=== PATIENT | female | born 1990 | race Two or more races ===

== ENCOUNTER 2017-02-05 01:29 | Inpatient (IN) | payer MEDICAID ==
[2017-02-05] MEDS ORDERED: RINGERS SOLUTION,LACTATED 1,000 ML IV PRN (01:42)
[2017-02-05 01:57] LABS: APPEARANCE,URINE SLIGHTLY-CLOUDY; BILIRUBIN,URINE NEGATIVE (NEGATIVE); GLUCOSE, URINE NEGATIVE (NEGATIVE); KETONES,URINE NEGATIVE (NEGATIVE); LEUKOCYTE ESTERASE,URINE MODERATE (NEGATIVE); NITRITE,URINE NEGATIVE (NEGATIVE); PROTEIN,URINE NEGATIVE (NEGATIVE); URINE SPECIFIC GRAVITY 1.015; UROBILINOGEN,URINE NEGATIVE mg/dL (<2.0)
[2017-02-05 02:01] LABS: ABSOLUTE BASOPHILS # (AUTO) 0.1 10^3/uL (0.0-0.2); ABSOLUTE EOSINOPHILS # (AUTO) 0.2 10^3/uL (0.0-0.6); ABSOLUTE LYMPHOCYTES (AUTO) 3.3 10^3/uL (0.5-4.7); ABSOLUTE MONOCYTES (AUTO) 0.8 10^3/uL (0.1-1.4); ABSOLUTE NEUT (AUTO) 10.1 10^3/uL (1.7-8.2); BASOPHILS % (AUTO) 0.5 % (0-2); EOSINOPHILS % (AUTO) 1.2 % (0-6); HEMATOCRIT 33.7 % (36.0-47.0); HEMOGLOBIN 11.3 g/dL (12.0-15.5); HGB HCT DIFFERENCE 0.2; LYMPHOCYTES % (AUTO) 22.6 % (13-45); MEAN CORPUSCULAR HEMOGLOBIN 27.5 pg (27.0-33.4); MEAN CORPUSCULAR HGB CONC 33.7 g/dL (32.0-36.0); MEAN CORPUSCULAR VOLUME 82 fl (80-97); MONOCYTES % (AUTO) 5.8 % (3-13); RED BLOOD COUNT 4.13 10^6/uL (3.72-5.28); RED CELL DISTRIBUTION WIDTH 14.5 % (11.5-14.0); SEGMENTED NEUTROPHILS % (AUTO) 69.9 % (42-78); WHITE BLOOD COUNT 14.4 10^3/uL (4.0-10.5)
[2017-02-05 02:16] LABS: URINE BARBITURATES SCREEN NEGATIVE; URINE METHADONE SCREEN NEGATIVE; URINE OPIATES LOW NEGATIVE; URINE PHENCYCLIDINE SCREEN NEGATIVE
[2017-02-05] MEDS ORDERED: PENICILLIN G-K 5 MILLION UNIT VIAL IV ONE (02:38)
[2017-02-05] MEDS ORDERED: PENICILLIN G-K 5 MILLION UNIT VIAL ONE ×3 (02:41→10:51)
[2017-02-05] MEDS ORDERED: MISOPROSTOL 0.1 MG TABLET ONE (02:47)
[2017-02-05] MEDS ORDERED: PENICILLIN G POTASSIUM 5,000,000 UNIT in DEXTROSE 5%-WATER 100 ML IV ONE ×2 (03:30→03:45)
[2017-02-05] MEDS ORDERED: PENICILLIN G-K 5 MILLION UNIT VIAL IV SCH ×2 (03:45→07:00)
[2017-02-05] MEDS ORDERED: MISOPROSTOL 0.1 MG TABLET PO SCH (03:45)
[2017-02-05 04:43] LABS: CHLAM PCR NOT DETECTED (NOT DETECT)
[2017-02-05] MEDS ORDERED: NALBUPHINE HCL INJ 10 MG/1 ML AMPULE INJ ONE (06:56)
[2017-02-05] MEDS ORDERED: NALBUPHINE HCL INJ 10 MG/1 ML AMPULE ONE (07:01)
[2017-02-05] MEDS ORDERED: PROMETHAZINE HCL 25 MG TABLET PO ONE (07:10)
[2017-02-05] MEDS ORDERED: PROMETHAZINE HCL INJ 25 MG/1 ML VIAL ONE (07:11)
[2017-02-05] MEDS ORDERED: OXYTOCIN/NORMAL SALINE 0 UNIT/0 ML RTUINJ ONE (07:40)
[2017-02-05] MEDS ORDERED: OXYTOCIN/NORMAL SALINE 20 UNIT/1,000 ML RTUINJ IV PRN (07:52)
[2017-02-05] MEDS: PENICILLIN G POTASSIUM 2,500,000 UNIT in DEXTROSE 5%-WATER 50 ML IV SCH ×2 (10:47→10:58)
[2017-02-05] MEDS ORDERED: MISOPROSTOL 0.2 MG TABLET ONE (12:08)
[2017-02-05] MEDS ORDERED: LIDOCAINE 1% INJ-PF (10 MG/ML) 30 ML SDV ONE (12:08)
[2017-02-05] MEDS ORDERED: OXYTOCIN/NORMAL SALINE 20 UNIT/1,000 ML RTUINJ ONE (12:09)
[2017-02-05] MEDS ORDERED: BENZOCAINE/MENTHOL AEROSOL SPRAY 56 ML TOP PRN (14:18)
[2017-02-05] MEDS ORDERED: ACETAMINOPHEN WITH CODEINE #3 TABLET PO PRN ×2 (14:18)
[2017-02-05] MEDS ORDERED: ZOLPIDEM TARTRATE 5 MG TABLET PO PRN (14:18)
[2017-02-05] MEDS ORDERED: DIBUCAINE 1% OINTMENT 28 GM TP PRN (14:18)
[2017-02-05] MEDS ORDERED: DIPH/PERTUSS(ACELL)/TETANUS VAC/PF 0.5 ML SYR (>=10YO) IM PRN (14:18)
[2017-02-05] MEDS ORDERED: MEASLES,MUMPS&RUBELLA VACC/PF 0.5 ML VIAL SUBCUT PRN (14:18)
--- NOTE | 2017-02-05 14:24 | Delivery Summary ---
Del Sum A-C Datetime Report Generated by CPN: 02/05/2017 14:23 DELIVERY PERSONNEL DELIVERY PERSONNEL: [id number] Delivery Doctor:: Santos Olsen, DO Labor and Delivery Nurse:: Krista Padron RNmaster rigger Nurse:: Nallely Leggett RN Nursery Nurse:: Jennifer Corado RN MATERNAL INFORMATION Delivery Anesthesia: None Medications After Delivery: Pitocin Bolus-Please Comment Meds After Delivery Comment: Pitocin 20 units in 1000mL NS Estimated Blood Loss (ml): 300 Maternal Complications: None Provider Comments: of viable female infant STEPHANIE position Placenta delievered spontaneous and intact with 3v cord Fundus firm LABOR SUMMARY EDC: 02/18/2017 00:00 No. Babies in Womb: 1 Attempted: No Labor Anesthesia: None LABOR INFORMATION Reason for Induction: Premature Rupture of Membranes Onset of Labor: 02/05/2017 07:05 Complete Dilatation: 02/05/2017 12:10 Cervical Ripening Agents: Cytotec @ Oxytocin: Induction Group B Beta Strep: positive Antibiotics # of Doses: 3 Antibiotics Time of Last Dose: 1100 Name of Antibiotic Given: Penicillin Steroids Given: None Reason Steroids Not Administered: Not Applicable MEMBRANES Membranes Rupture Method: Spontaneous Rupture of Membranes: 02/05/2017 01:49 Length of Rupture (hr): 10.45 Amniotic Fluid Color: Clear Amniotic Fluid Amount: Small Amniotic Fluid Odor: Normal STAGES OF LABOR Stage 1 hr: 5 Stage 1 min: 5 Stage 2 hr: 0 Stage 2 min: 6 Stage 3 hr: 0 Stage 3 min: 1 Total Time in Labor hr: 5 Total Time in Labor min: 12 VAGINAL DELIVERY Episiotomy: None Laceration #1: Vaginal Laceration Extension #1: Second Degree Laceration Repair: Yes Laceration Repair Note: b/l vaginal sidewall repaired with 2-0 and 3-0 chromic in usual fashion with good hemostasis Sponge Count Correct: N/A Sharps Count Correct: N/A CSECTION DELIVERY Primary Indication: N/A Secondary Indication: N/A BABY A INFORMATION Infant Delivery Date/Time: 02/05/2017 12:16 Method of Delivery: Vaginal Born in Route : No : N/A Forceps: N/A Vacuum Extraction: N/A Shoulder Dystocia : No PRESENTATION/POSITION BABY A Presentation: Cephalic Cephalic Presentation: Vertex Vertex Position: Left Occipital Anterior Breech Presentation: N/A PLACENTA INFORMATION BABY A Placenta Delivery Time : 02/05/2017 12:17 Placenta Method of Delivery: Spontaneous Placenta Status: Delivered SCORES BABY A Heart Rate 1 min: >100 bpm Resp Effort 1 min: Good Cry Reflex Irritability 1 min: Cough or Sneeze or Pulls Away Muscle Tone 1 min: Active Motion Color 1 min: Blue/Pale Resuscitation Effort 1 min: Tactile Stimulation SCORE 1 MIN: 8 Heart Rate 5 min: >100 bpm Resp Effort 5 min: Good Cry Reflex Irritability 5 min: Cough or Sneeze or Pulls Away Muscle Tone 5 min: Active Motion Color 5 min: Body [place], Extremities Blue Resuscitation Effort 5 min: Tactile Stimulation SCORE 5 MIN: 9 INFORMATION BABY A Gestational Age at Delivery: 38.1 Gestational Status: Early Term- 37- 38.6 Weeks Outcome : Liveborn Condition : Stable Sex: Female IDENTIFICATION BABY A Infant Verification Date/Time: 02/05/2017 12:33 ID Band Number: [id number] Mother's Name Verified: Yes Infant RN Verifying Infant: RJames Padron, RN Additional Verifying Personnel: TJames Lopes, ST WEIGHT/LENGTH BABY A Birthweight (gm): 3185 Weight (lb): 7 Infant Weight (oz): 0 Infant Length (in): 19.00 Infant Length (cm): 48.26 CORD INFORMATION BABY A No. Cord Vessels: 3 Nuchal Cord : N/A Cord Blood Taken: Yes-For Eval (Mom's Blood Type - or O+) Suction: Mouth ASSESSMENT BABY A Infant Complications: None Physical Findings at Delivery: Within Normal Limits Infant Respirations: Appears Normal Skin to Skin: Yes Condominium Property Manager/ALS Called : No Infant Care By: Loreta Corado, RN Transferred To: Remains with Mother BABY B INFORMATION : N/A SIGNATURES Signature: with User ID: [email or web address]
--- NOTE | 2017-02-05 14:43 | Admission Physical ---
Datetime Report Generated by CPN: 02/05/2017 14:42 CURRENT ADMISSION Hx Assessment: The History has been Reviewed and is Current Chief Complaint: Suspected Ruptured Membranes Indication for Induction: PROM Indication for Induction: Ruptured Membranes Admit Plan: Admit to Unit ALLERGIES Medication Allergies: No Medication Allergies: No Known Allergies (02/05/2017) Medication Allergies: No Known Allergies (04/20/2012) Latex: Latex Allergies Food Allergies: N/A Environmental Allergies: N/A OBSTETRICAL HISTORY EDC: 02/18/2017 00:00 : 1 Para: 0 Term: 0 : 0 SAB: 0 IAB: 0 Ectopic: 0 Livin Cesareans: 0 VBACs: 0 Multiple Births: 0 Gestational Diabetes: No Rh Sensitization: No Incompetent Cervix: No VALERY: No Infertility: No ART Treatment: No Uterine Anomaly: No IUGR: No Hx Previous C/S: No Macrosomia: No Hx Loss/Stillborn: No PIH: No Hx : No Placenta Previa/Abruption: No Depression/PP Depression: No PTL/PROM: No Post Hemorrhage: No Current Procedures: Ultrasound Obstetrical History Comments: G1- current SEE RECORDS Alcohol: No Marijuana : No Cocaine: No Other Illicit Drugs: No Cigarettes: Never Smoker. [id number] MEDICAL HISTORY Diabetes: No Blood Transfusion: No Pulmonary Disease (Asthma, TB): No Breast Disease: No Hypertension: No Legal Services Manager Surgery: No Heart Disease: No Hosp/Surgery: No Autoimmune Disorder: No Anesthetic Complications: No Kidney Disease: No Abnormal Pap Smear: No Neuro/Epilepsy: No Psychiatric Disorders: No Other Medical Diseases: No Hepatitis/Liver Disease: No Significant Family History: No Varicosities/Phlebitis: No Trauma/Violence : No Thyroid Dysfunction: No Medical History Comments: morbid obesity INFECTIOUS HISTORY Gonorrhea: No Genital Herpes: No Chlamydia: Yes Tuberculosis: No Syphilis: No Hepatitis: No HIV/AIDS Exposure: No Rash or Viral Illness: No HPV: No Infectious History Comments: 07/2016 chlamydia + PETER in August01.25.2017 chlam + took abx PHYSICAL EXAM General: Normal HEENT: Normal Neurologic: Normal Heart: Normal Lungs: Normal Abdomen: Normal Genitourinary Exam: Normal Extremities: Normal Pelvic Type: Not Done Physical Exam Comments: Gen: morbid obesity Abd: gravid, NT; obese Vital Signs: Reviewed; Within Normal Limits FETUS A EGA: 38.1 Monitoring: External US FHR- Baseline: 140s Variability: Moderate 6-25bpm Accelerations: 15X15 FHR Category: Category I FHR Comments: Reasurring status Estimated Weight (gm): Approx. 3200g Presentation: Vertex Admit Comment: 26yo G1 @ 38w1d with complaints of leakage of fluid. Pt reports good fm, no vb. Pt underwent ROM just prior to arrival. Fluid was noted to be clear. Pt denies any problems with this other than noted morbid obesity. PLANS FOR LABOR AND DELIVERY Labor and Delivery: None Pain Management: None Feeding Preference: Formula Benefit of Breast Feed Discussed: Yes Circumcision: N/A INFORMED CONSENT Signature: with User ID: [email or web address]
[2017-02-05] MEDS: DOCUSATE SODIUM 100 MG CAPSULE PO SCH (17:09)
[2017-02-05] MEDS: FERROUS SULFATE 325 MG TABLET PO SCH (17:10)
[2017-02-05] MEDS: IBUPROFEN 800 MG TABLET PO SCH (21:10)
[2017-02-06] MEDS: IBUPROFEN 800 MG TABLET PO SCH ×3 (06:13→21:28)
[2017-02-06 08:07] LABS: HEMATOCRIT 29.9 % (36.0-47.0); HGB HCT DIFFERENCE 0.1; MEAN CORPUSCULAR HEMOGLOBIN 27.8 pg (27.0-33.4); MEAN CORPUSCULAR HGB CONC 33.4 g/dL (32.0-36.0); MEAN CORPUSCULAR VOLUME 83 fl (80-97); RED CELL DISTRIBUTION WIDTH 14.9 % (11.5-14.0); WHITE BLOOD COUNT 13.6 10^3/uL (4.0-10.5)
--- NOTE | 2017-02-06 09:26 | PDOC PROGRESS REPORT ---
Subjective-OB Subjective: Post Delivery Day: 26 year old. Denies any needs at this time. reports normal bleeding, tolerating diet, voiding without difficulty, passing gas, bottle feeding. fundus firm at U-1. Physical Exam (OB) Vital Signs: Temp Pulse Resp BP Pulse Ox 98.2 F 72 18 109/61 100 02/06/17 07:29 02/06/17 07:29 02/06/17 07:29 02/06/17 07:29 02/06/17 07:29 Intake & Output 02/05/17 02/06/17 02/07/17 06:59 06:59 06:59 Intake Total 700 Balance 700 Weight 137.95 kg - Abdomen Description: Soft, Round Hernia Present: No Fundal Description: Firm, Midline Fundal Height: u/u - u/2 - Extremities Lower extremities: Josef's sign - neg Calf: Normal - Neurological Cognition: Normal Orientation: AAOx4 Speech: Normal Objective-Diagnostic Laboratory: 02/06/17 07:08 02/06/17 07:08 WBC 13.6 H RBC 3.60 L Hgb 10.0 L Hct 29.9 L MCV 83 MCH 27.8 MCHC 33.4 RDW 14.9 H Plt Count 188 Assessment and Plan(PN) - Time Spent with Patient Time with patient: Less than 15 minutes - Disposition Anticipated Discharge: Home Within: within 24 hours
[2017-02-06] MEDS ORDERED: PRENATAL VITAMIN W-O CA NO5/FE FUMARATE/FA CAPSULE PO SCH (10:00)
[2017-02-06] MEDS: FERROUS SULFATE 325 MG TABLET PO SCH ×2 (10:17→18:10)
[2017-02-06] MEDS: DOCUSATE SODIUM 100 MG CAPSULE PO SCH ×2 (10:18→18:12)
[2017-02-06] MEDS: SENNOSIDES/DOCUSATE 8.6-50 MG 1 EACH TABLET PO SCH (10:18)
[2017-02-07] MEDS: IBUPROFEN 800 MG TABLET PO SCH ×2 (05:59→14:04)
[2017-02-07 08:58] VITALS: BP 112/62
[2017-02-07] MEDS ORDERED: PRENATAL VITAMIN W DHA CAPSULE PO ONE (09:23)
--- NOTE | 2017-02-07 09:25 | PDOC DISCHARGE SUMMARY ---
Final Diagnosis Discharge Date: 02/07/17 - Final Diagnosis (1) Acute blood loss anemia Is this a current diagnosis for this admission?: Yes (2) Normal vaginal delivery Is this a current diagnosis for this admission?: Yes (3) Obesity Is this a current diagnosis for this admission?: Yes Discharge Data - Discharge Medication Home Medications: Docusate Sodium [Colace 100 mg Capsule] 100 mg PO BID #60 capsule 02/07/17 Ferrous Sulfate [Feosol 325 mg Tablet] 325 mg PO BID #60 tablet 02/07/17 Ibuprofen [Motrin 800 mg Tablet] 800 mg PO Q8 #60 tablet 02/07/17 Gestational Age: 38.1 Reason(s) for Admission: Induction of Labor, PROM Procedures: NST Intrapartum Procedure(s): Spontaneous Vaginal Delivery Complication(s): Laceration-Vaginal Laceration-Degree: 1st - Data Baby 1 Female at 1 minute: 8 at 5 minutes: 9 Weight: 3185 kg Home with Mother: Yes Complications: No - Diagnosis Test Laboratory: Temp Pulse Resp BP Pulse Ox 97.6 F 85 16 112/62 100 02/07/17 07:43 02/07/17 07:43 02/07/17 07:43 02/07/17 07:43 02/07/17 07:43 02/05/17 02/05/17 02/06/17 01:38 01:50 07:08 RBC 4.13 3.60 L Hgb 11.3 L 10.0 L Hct 33.7 L 29.9 L Urine Opiates Screen NEGATIVE - Discharge information/Instructions Discharge Activity: Activity As Tolerated, Pelvic Rest, No tub bath Discharge Diet: Regular Disposition: HOME, SELF-CARE Follow up with: [facility] in: 4, Weeks
[2017-02-07] MEDS: SENNOSIDES/DOCUSATE 8.6-50 MG 1 EACH TABLET PO SCH (09:35)
[2017-02-07] MEDS: FERROUS SULFATE 325 MG TABLET PO SCH (09:35)
[2017-02-07] MEDS: DOCUSATE SODIUM 100 MG CAPSULE PO SCH (09:35)
[2017-02-07] MEDS ORDERED: PRENATAL VITAMIN W DHA CAPSULE PO SCH (10:00)
== END 2017-02-07 16:35 | disposition home or self-care (01) | DRG 774 ==
LOC: LC 01:29 → LR 01:46 → 2S 14:35
PROVIDERS: ADMIT Obstetrics & Gynecology; ATTEND Obstetrics & Gynecology
PROC: 10E0XZZ Delivery of Products of Conception, External Approach (ICD-10-PCS; principal; 2017-02-05)
PROC: 0KQM0ZZ Repair Perineum Muscle, Open Approach (ICD-10-PCS; 2017-02-05)
DX: O99.214 Obesity complicating childbirth (principal); O98.32 Other infections with a predominantly sexual mode of transmission complicating childbirth; Z68.43 Body mass index [BMI] 50.0-59.9, adult; D62 Acute posthemorrhagic anemia; O99.824 Streptococcus B carrier state complicating childbirth; O70.1 Second degree perineal laceration during delivery; O90.81 Anemia of the puerperium; E66.01 Morbid (severe) obesity due to excess calories; Z3A.38 38 weeks gestation of pregnancy; Z37.0 Single live birth
CPT/HCPCS: 36415; 80307; 81005; 85025; 85027; 86592; 86850; 86900; 86901; 87491; 87591; 90707; J2300; J2540; J2550; J2590; J3490

== ENCOUNTER 2019-12-18 01:57 | Outpatient (CLI) | payer MEDICAID ==
[2019-12-18 02:34] LABS: APPEARANCE,URINE CLEAR; BILIRUBIN,URINE NEGATIVE (NEGATIVE); COLOR,URINE STRAW; GLUCOSE, URINE NEGATIVE (NEGATIVE); KETONES,URINE NEGATIVE (NEGATIVE); LEUKOCYTE ESTERASE,URINE TRACE (NEGATIVE); NITRITE,URINE NEGATIVE (NEGATIVE); PROTEIN,URINE NEGATIVE (NEGATIVE); URINE SPECIFIC GRAVITY 1.008; UROBILINOGEN,URINE NEGATIVE mg/dL (<2.0)
[2019-12-18 03:00] LABS: URINE AMPHETAMINES SCREEN NEGATIVE; URINE BARBITURATES SCREEN NEGATIVE; URINE BENZODIAZEPINES SCREEN NEGATIVE; URINE COCAINE SCREEN NEGATIVE; URINE MARIJUANA (THC) SCREEN NEGATIVE; URINE METHADONE SCREEN NEGATIVE; URINE PHENCYCLIDINE SCREEN NEGATIVE
--- NOTE | 2019-12-18 03:10 | Non Stress Test Report ---
Non Stress Test Datetime Report Generated by CPN: 12/18/2019 03:10 DEMOGRAPHIC EGA NST: 39.1 INDICATION Indication for Study (NST) Other: labor check VITAL SIGNS Temperature - NST: 98.7 RESP - NST: 17 MONITORING Monitor Explained: Monitor Explained; Test Explained; Patient Verbalized Understanding Time on Monitor: 12/18/2019 02:10 Time off Monitor: 12/18/2019 03:09 NST Duration: 59 NST INTERVENTIONS NST Interventions: Reposition Patient Physician Notified NST: Dr Ilan BABY A: [id number] BABY A Movement : Present Contraction Frequency : 5-8 FHR Baseline : 155 Accelerations : 15X15 Decelerations : None Variability : Moderate 6-25bpm NST Review: Meets Criteria for Reactive NST NST Review and Verified By : Jossie Padron RN NST Results: Reactive NST REPORT Report Trigger: Send Report
== END 2019-12-18 03:13 | disposition home or self-care (01) ==
LOC: LC 01:57
PROVIDERS: ATTEND Obstetrics & Gynecology
DX: O47.1 False labor at or after 37 completed weeks of gestation (principal); Z3A.39 39 weeks gestation of pregnancy
CPT/HCPCS: 59025; 80307; 81005

== ENCOUNTER 2019-12-19 15:44 | Outpatient (CLI) | payer MEDICAID ==
[2019-12-19 16:34] LABS: APPEARANCE,URINE SLIGHTLY-CLOUDY; BILIRUBIN,URINE NEGATIVE (NEGATIVE); COLOR,URINE YELLOW; GLUCOSE, URINE NEGATIVE (NEGATIVE); KETONES,URINE NEGATIVE (NEGATIVE); LEUKOCYTE ESTERASE,URINE MODERATE (NEGATIVE); NITRITE,URINE NEGATIVE (NEGATIVE); PROTEIN,URINE NEGATIVE (NEGATIVE); URINE SPECIFIC GRAVITY 1.019; UROBILINOGEN,URINE NEGATIVE mg/dL (<2.0)
--- NOTE | 2019-12-19 16:45 | Non Stress Test Report ---
Non Stress Test Datetime Report Generated by CPN: 12/19/2019 16:45 DEMOGRAPHIC Test Number: 2 EGA NST: 39.2 VITAL SIGNS Temperature - NST: 98.5 Pulse - NST: 99 RESP - NST: 15 NBPSYS NST: 119 NBPDIA NST: 60 MONITORING Monitor Explained: Monitor Explained; Test Explained; Patient Verbalized Understanding Time on Monitor: 12/19/2019 16:01 Time off Monitor: 12/19/2019 16:44 NST Duration: 43 NST INTERVENTIONS NST Interventions: Reposition Patient BABY A: [id number] BABY A Movement : Present Contraction Frequency : x1 FHR Baseline : 150 Accelerations : 15X15 Decelerations : None Variability : Moderate 6-25bpm NST Review: Meets Criteria for Reactive NST NST Review and Verified By : SAutry NST Results: Reactive NST REPORT Report Trigger: Send Report
[2019-12-19 16:57] LABS: URINE AMPHETAMINES SCREEN NEGATIVE; URINE BARBITURATES SCREEN NEGATIVE; URINE BENZODIAZEPINES SCREEN NEGATIVE; URINE COCAINE SCREEN NEGATIVE; URINE MARIJUANA (THC) SCREEN NEGATIVE; URINE METHADONE SCREEN NEGATIVE; URINE PHENCYCLIDINE SCREEN NEGATIVE
== END 2019-12-19 17:04 | disposition home or self-care (01) ==
LOC: LC 15:44
PROVIDERS: ATTEND Obstetrics & Gynecology
DX: O47.1 False labor at or after 37 completed weeks of gestation (principal); Z3A.39 39 weeks gestation of pregnancy
CPT/HCPCS: 59025; 80307; 81005; 84112

== ENCOUNTER 2019-12-22 03:46 | Inpatient (IN) | payer MEDICAID ==
[2019-12-22 04:32] LABS: APPEARANCE,URINE CLEAR; BILIRUBIN,URINE NEGATIVE (NEGATIVE); COLOR,URINE STRAW; GLUCOSE, URINE NEGATIVE (NEGATIVE); KETONES,URINE NEGATIVE (NEGATIVE); LEUKOCYTE ESTERASE,URINE NEGATIVE (NEGATIVE); NITRITE,URINE NEGATIVE (NEGATIVE); PROTEIN,URINE NEGATIVE (NEGATIVE); URINE SPECIFIC GRAVITY 1.005; UROBILINOGEN,URINE NEGATIVE mg/dL (<2.0)
[2019-12-22] MEDS ORDERED: RINGERS SOLUTION,LACTATED 1,000 ML IV PRN (04:34)
[2019-12-22] MEDS ORDERED: OXYTOCIN/0.9 % SODIUM CHLORIDE 30 UNIT/500 ML RTUINJ IV PRN ×2 (04:35→08:04)
[2019-12-22] MEDS ORDERED: LIDOCAINE 1% INJ-PF (10 MG/ML) 30 ML SDV ONE (04:42)
[2019-12-22] MEDS ORDERED: MISOPROSTOL 0.2 MG TABLET ONE (04:42)
[2019-12-22] MEDS ORDERED: OXYTOCIN/0.9 % SODIUM CHLORIDE 0 UNIT/0 ML RTUINJ ONE (04:42)
[2019-12-22 04:58] LABS: URINE AMPHETAMINES SCREEN NEGATIVE; URINE BARBITURATES SCREEN NEGATIVE; URINE BENZODIAZEPINES SCREEN NEGATIVE; URINE COCAINE SCREEN NEGATIVE; URINE MARIJUANA (THC) SCREEN NEGATIVE; URINE METHADONE SCREEN NEGATIVE; URINE PHENCYCLIDINE SCREEN NEGATIVE
[2019-12-22] MEDS ORDERED: OXYTOCIN/0.9 % SODIUM CHLORIDE 30 UNIT/500 ML RTUINJ ONE (05:06)
[2019-12-22 05:22] LABS: ABSOLUTE BASOPHILS # (AUTO) 0.1 10^3/uL (0.0-0.2); ABSOLUTE EOSINOPHILS # (AUTO) 0.2 10^3/uL (0.0-0.6); ABSOLUTE MONOCYTES (AUTO) 0.7 10^3/uL (0.1-1.4); ABSOLUTE NEUT (AUTO) 8.2 10^3/uL (1.7-8.2); BASOPHILS % (AUTO) 0.5 % (0-2); EOSINOPHILS % (AUTO) 1.9 % (0-6); HEMATOCRIT 33.4 % (36.0-47.0); HEMOGLOBIN 11.1 g/dL (12.0-15.5); LYMPHOCYTES % (AUTO) 24.2 % (13-45); MEAN CORPUSCULAR HEMOGLOBIN 27.4 pg (27.0-33.4); MEAN CORPUSCULAR HGB CONC 33.3 g/dL (32.0-36.0); MEAN CORPUSCULAR VOLUME 82 fl (80-97); PLATELET COUNT 222 10^3/uL (150-450); RED BLOOD COUNT 4.07 10^6/uL (3.72-5.28); RED CELL DISTRIBUTION WIDTH 15.4 % (11.5-14.0); SEGMENTED NEUTROPHILS % (AUTO) 67.4 % (42-78); TOTAL CELLS COUNTED % (AUTO) 100 %; WHITE BLOOD COUNT 12.2 10^3/uL (4.0-10.5)
--- NOTE | 2019-12-22 06:48 | Admission Physical ---
Datetime Report Generated by CPN: 12/22/2019 06:47 CURRENT ADMISSION Chief Complaint: Suspected Ruptured Membranes Indication for Induction: PROM Admit Impression : Term, Intrauterine ; No Active Labor; Ruptured Membranes Admit Plan: Admit to Unit; Initiate Labor Induction Protocol ALLERGIES Medication Allergies: No Medication Allergies: No Known Allergies (12/22/2019) Latex: No Latex Allergies Food Allergies: no Environmental Allergies: no OBSTETRICAL HISTORY EDC: 12/24/2019 00:00 : 2 Para: 1 Term: 1 : 0 SAB: 0 IAB: 0 Livin Cesareans: 0 VBACs: 0 Gestational Diabetes: No Rh Sensitization: No Incompetent Cervix: No VALERY: No Infertility: No ART Treatment: No Uterine Anomaly: No IUGR: No Hx Previous C/S: No Macrosomia: No Hx Loss/Stillborn: No PIH: No Hx : No Placenta Previa/Abruption: No Depression/PP Depression: No PTL/PROM: No Post Hemorrhage: No Current Procedures: Ultrasound; NST Obstetrical History Comments: g1-2016, , 38 weeks, female, 7lb, no complications g2-current , elevated BMI, LPNC SEE RECORDS Alcohol: No Marijuana : No Cocaine: No Other Illicit Drugs: No Cigarettes: Never Smoker. [id number] MEDICAL HISTORY Diabetes: No Blood Transfusion: No Pulmonary Disease (Asthma, TB): No Breast Disease: No Hypertension: No Screen Examiner Surgery: No Heart Disease: No Hosp/Surgery: Yes Autoimmune Disorder: No Anesthetic Complications: No Kidney Disease: No Abnormal Pap Smear: No Neuro/Epilepsy: No Psychiatric Disorders: No Other Medical Diseases: No Hepatitis/Liver Disease: No Significant Family History: No Varicosities/Phlebitis: No Trauma/Violence : No Thyroid Dysfunction: No Medical History Comments: childbirth x 1, morbidly obese INFECTIOUS HISTORY Gonorrhea: No Genital Herpes: No Chlamydia: Yes Tuberculosis: No Syphilis: No Hepatitis: No HIV/AIDS Exposure: No Rash or Viral Illness: No HPV: No Infectious History Comments: chlamydia x 3 last test to cure 11/2019 PHYSICAL EXAM General: Normal HEENT: Normal Neurologic: Normal Thyroid: Normal Heart: Normal Lungs: Normal Breast: Normal Back: Normal Abdomen: Normal Genitourinary Exam: Normal Extremities: Normal DTRs: Normal Pelvic Type: Adequate Vital Signs: Reviewed; Within Normal Limits VAGINAL EXAM Dilatation: 2 Effacement: 70 Station: -3 FETUS A EGA: 39.5 Monitoring: External US FHR- Baseline: 150 Variability: Moderate 6-25bpm Accelerations: 15X15 Decelerations: None FHR Category: Category I Estimated Weight (gm): 3800 Presentation: Vertex PLANS FOR LABOR AND DELIVERY Labor and Delivery: None Pain Management: Medications; Epidural Feeding Preference: Both Benefit of Breast Feed Discussed: Yes Circumcision: No INFORMED CONSENT Signature: with User ID: [email or web address]
[2019-12-22] MEDS ORDERED: ZOLPIDEM TARTRATE 5 MG TABLET PO PRN (08:04)
[2019-12-22] MEDS ORDERED: DIBUCAINE 1% OINTMENT 28 GM TP PRN (08:04)
[2019-12-22] MEDS ORDERED: ACETAMINOPHEN 325 MG TABLET PO PRN (08:04)
[2019-12-22] MEDS ORDERED: MEASLES,MUMPS&RUBELLA VACC/PF 0.5 ML VIAL SUBCUT PRN (08:04)
[2019-12-22] MEDS ORDERED: DIPH/PERTUSS(ACELL)/TETANUS VAC/PF 0.5 ML SYR (>=10YO) IM PRN (08:04)
[2019-12-22] MEDS ORDERED: PROMETHAZINE HCL INJ 25 MG/1 ML VIAL IV PRN (08:04)
[2019-12-22] MEDS ORDERED: GLYCERIN/WITCH HAZEL LEAF 1 EACH MED..WIPE TP PRN (08:04)
[2019-12-22] MEDS ORDERED: ACETAMINOPHEN WITH CODEINE #3 TABLET PO PRN ×2 (08:04)
[2019-12-22] MEDS ORDERED: MAGNESIUM HYDROXIDE SUSP 30 ML UDCUP PO PRN (08:04)
[2019-12-22] MEDS ORDERED: PROMETHAZINE HCL 25 MG SUPP.RECT PR PRN (08:04)
[2019-12-22] MEDS ORDERED: PSEUDOEPHEDRINE HCL 30 MG TABLET PO PRN (08:04)
[2019-12-22] MEDS ORDERED: PROMETHAZINE HCL 25 MG TABLET PO PRN (08:04)
[2019-12-22] MEDS ORDERED: NA PHOS,M-B/NA PHOS,DI-BA (ADULT) 133 ML ENEMA PR PRN (08:04)
[2019-12-22] MEDS ORDERED: DIPHENHYDRAMINE HCL 25 MG CAPSULE PO PRN (08:04)
[2019-12-22] MEDS ORDERED: ACETAMINOPHEN 650 MG SUPP.RECT PR PRN (08:04)
[2019-12-22] MEDS ORDERED: BENZOCAINE/MENTHOL AEROSOL SPRAY 56 ML TOP PRN (08:04)
--- NOTE | 2019-12-22 10:14 | Birth Certificate Data ---
Cert Data Datetime Report Generated by CPN: 12/22/2019 10:13 CERTIFICATE DATA 47a. Care: No (12/18/2019 02:07:Tiera Sotelo RN) 47b. Date of First Visit: 09/04/2019 00:00 (12/18/2019 02:07:Tiera Sotelo RN) 47c. Date of Last Visit: 12/18/2019 00:00 (12/18/2019 02:07:Tiera Sotelo RN) 47d. Number of Visits: 11 (12/18/2019 02:07:Tiera Sotelo RN) 48a. Number of Prev Live Births: 1 (12/18/2019 02:07:Tiera Sotelo RN) 48b. Now Livin (12/18/2019 02:07:ANIRUDH Pollard) 48c. Live Births Now : 0 (12/18/2019 02:07:QS system process) 48e. Losses: 0 (12/18/2019 02:07:Jennifer Corado RN) RISK FACTORS IN THIS 49a. Diabetes: No (12/18/2019 02:07:Tiera Sotelo RN) 49b. Hypertension: No (12/18/2019 02:07:Tiera Sotelo RN) 49c. Previous Births: 0 (12/18/2019 02:07:ANIRUDH Pollard) 49d. Stillborns: No (12/18/2019 02:07:Tiera Sotelo RN) 49d. IUGR: No (12/18/2019 02:07:Tiera Sotelo RN) 49e. Infertility Treatment: No (12/18/2019 02:07:Tiera Sotelo RN) 49f. Previous Cesareans: 0 (12/18/2019 02:07:Tiera Sotelo RN) Mother's Height 50b. Height Inches: 64 (12/22/2019 09:54:QS system process) Mother's Weight 51a. Pre- Weight (lbs): 309 (12/18/2019 02:07:Nany Livingston RN) 51b. Weight at Delivery (lbs): 339 (12/22/2019 09:54:QS system process) 52. Dt Last Normal Menses Began: 07/29/2019 00:00 (12/18/2019 02:07:Jennifer Corado RN) Infections Present/Treated 53a. Gonorrhea: No (12/18/2019 02:07:Tiera Sotelo RN) Results this Hospital Visit : Negative (12/18/2019 02:07:Tiera Sotelo RN) 53b. Syphilis: No (12/18/2019 02:07:Tiera Sotelo RN) 53c. Chlamydia: Yes (12/18/2019 02:07:Palak Palacio RN) Results this Hospital Visit: Positive (12/18/2019 02:07:Tiera Sotelo RN) 53d. Hepatitis B: No (12/18/2019 02:07:Tiera Sotelo RN) Results this Hospital Visit: Negative (12/18/2019 02:07:Tiera Sotelo RN) 53e. Hepatitis C: Negative (12/18/2019 02:07:Tiera Sotelo RN) 53h. Mother Tested for HBsAG: Yes (12/18/2019 02:07:Tiera Sotelo RN) 53i. Date Tested: 09/25/2019 00:00 (12/18/2019 02:07:Tiera Sotelo RN) 53j. Test Result: Negative (12/18/2019 02:07:Tiera Sotelo RN) Obstetric Procedures 54a, b, c. Obstetric Procedures: Ultrasound; NST (12/18/2019 02:07:Tiera Sotelo RN) Cigarette Smoking Cigarette Smoking: Never Smoker. [id number] (12/18/2019 02:07:Palak Palacio RN) Onset of Labor 56a. PROM >12 Hrs: 4.30 (12/22/2019 04:02:QS system process) 56b. Precipitous Labor <3 Hrs: 4 (12/18/2019 02:07:QS system process) 56c. Prolonged Labor > 20 Hrs: 4 (12/18/2019 02:07:QS system process) 57a. Induction of Labor: Augmentation (12/18/2019 02:07:Odalys Talavera MD ([facility])) 57c. Non-Vertex Presentation A: Vertex (12/18/2019 02:07:Palak Palacio RN) 57d. Steroids - Lung Mat: None (12/18/2019 02:07:Jennifer Corado RN) 57d. Steroids - Lung Mat: Not Applicable (12/18/2019 02:07:Jennifer Corado RN) 57g. Moderate/Heavy Meconium: Light Meconium (12/22/2019 04:02:Tiera Sotelo RN) 57h. Intolerance of Labor: N/A (12/18/2019 02:07:Palak Palacio RN) : N/A (12/18/2019 02:07:Palak Palacio RN) 57i. Epidural/Spinal Anesthesia: None (12/18/2019 02:07:Palak Palacio KEVIN) Method of Delivery 58a. Forceps - Unsuccessful A: N/A (12/18/2019 02:07:Palak Palacio RN) 58b. Vacuum - Unsuccessful A: N/A (12/18/2019 02:07:Palak Palacio, KEVIN) 58c. Presentation at 58c. Presentation at - A : Vertex (12/18/2019 02:07:Palak Palacio RN) 58c. Presentation at - A : N/A (12/18/2019 02:07:Palak Palacio RN) 58c. Presentation at - A : Cephalic (12/18/2019 02:07:Palak Palacio RN) Final Route and Method of Del 58d. Baby A Route/Delivery: Vaginal (12/22/2019 07:48:Palak Palacio RN) 58e. Trial of Labor Attempted: No (12/18/2019 02:07:Palak Palacio RN) 58e. Trial of Labor Attempted A: N/A (12/18/2019 02:07:Palak Palacio RN) 58e. Trial of Labor Attempted B: N/A (12/18/2019 02:07:Palak Palacio RN) Maternal Morbidity 59b. 3rd or 4th Degree Lacs: None (12/18/2019 02:07:Odalys Talavera MD ([facility])) 59b. 3rd or 4th Degree Lacs: N/A (12/18/2019 02:07:Jennifer Corado RN) Birthweight Baby A: 3546 (12/18/2019 02:07:Mesha Eric RN) 60a. Pounds : 7 (12/18/2019 02:07:QS system process) 60b. Ounces: 13 (12/18/2019 02:07:QS system process) 61. GA at Delivery Baby A: 39.5 (12/18/2019 02:07:Palak Palacio RN) : Full Term- 39- 40.6 Weeks (12/18/2019 02:07:QS system process) 62a. 5 Minute Baby A: 9 (12/18/2019 02:07:QS system process)
--- NOTE | 2019-12-22 10:14 | Delivery Summary ---
Del Sum A-C Datetime Report Generated by CPN: 12/22/2019 10:13 DELIVERY PERSONNEL DELIVERY PERSONNEL: [id number] Delivery Doctor:: Odalys Talavera MD Labor and Delivery Nurse:: Jennifer Corado RNpublic address system operator Nurse:: Palak Palacio RN Nursery Nurse:: Mesha Eric RN Entry Level Marketing Representative/ENGINEERING RESEARCH MANAGER: Lisa Camilo, PERISHABLE FREIGHT INSPECTOR MATERNAL INFORMATION Delivery Anesthesia: None Medications After Delivery: Pitocin 30 Units in 500ml NS/D5W Estimated Blood Loss (ml): 200 Delivery QBL: 200 Maternal Complications: None LABOR SUMMARY EDC: 12/24/2019 00:00 No. Babies in Womb: 1 Attempted: No Labor Anesthesia: None LABOR INFORMATION Reason for Induction: Not Applicable Onset of Labor: 12/22/2019 03:30 Complete Dilatation: 12/22/2019 07:42 Oxytocin: Augmentation Group B Beta Strep: negative Steroids Given: None Reason Steroids Not Administered: Not Applicable MEMBRANES Membranes Rupture Method: Spontaneous Rupture of Membranes: 12/22/2019 03:30 Length of Rupture (hr): 4.30 Amniotic Fluid Color: Light Meconium Amniotic Fluid Amount: Moderate Amniotic Fluid Odor: Normal STAGES OF LABOR Stage 1 hr: 4 Stage 1 min: 12 Stage 2 hr: 0 Stage 2 min: 6 Stage 3 hr: 0 Stage 3 min: 4 Total Time in Labor hr: 4 Total Time in Labor min: 22 VAGINAL DELIVERY Episiotomy: None Laceration #1: None Laceration Extension #1: N/A Laceration Repair: Not Applicable Sponge Count Correct: Yes Sharps Count Correct: Yes CSECTION DELIVERY Primary Indication: N/A Secondary Indication: N/A CSection Incidence: N/A Labor: N/A Elective: N/A CSection Incision: N/A BABY A INFORMATION Delivery Date/Time: 12/22/2019 07:48 Method of Delivery: Vaginal Nurse Controlled Delivery: No Born in Route : No : N/A Forceps: N/A Vacuum Extraction: N/A Shoulder Dystocia : No PRESENTATION/POSITION BABY A Presentation: Cephalic Cephalic Presentation: Vertex Vertex Position: Left Occipital Anterior Breech Presentation: N/A PLACENTA INFORMATION BABY A Placenta Delivery Time : 12/22/2019 07:52 Placenta Method of Delivery: Spontaneous Placenta Status: Delivered SCORES BABY A Heart Rate 1 min: >100 bpm Resp Effort 1 min: Good Cry Reflex Irritability 1 min: Cough or Sneeze or Pulls Away Muscle Tone 1 min: Active Motion Color 1 min: Body [place], Extremities Blue Resuscitation Effort 1 min: Tactile Stimulation SCORE 1 MIN: 9 Heart Rate 5 min: >100 bpm Resp Effort 5 min: Good Cry Reflex Irritability 5 min: Cough or Sneeze or Pulls Away Muscle Tone 5 min: Active Motion Color 5 min: Body [place], Extremities Blue Resuscitation Effort 5 min: N/A SCORE 5 MIN: 9 INFANT INFORMATION BABY A Gestational Age at Delivery: 39.5 Gestational Status: Full Term- 39- 40.6 Weeks Outcome : Liveborn Infant Condition : Stable Infant Sex: Male IDENTIFICATION BABY A Infant Verification Date/Time: 12/22/2019 08:01 ID Band Number: [id number] Mother's Name Verified: Yes RN Verifying : Ajay Palacio RN, Osiel Chaudhary RN WEIGHT/LENGTH BABY A Birthweight (gm): 3546 Infant Weight (lb): 7 Weight (oz): 13 Length (in): 19.50 Infant Length (cm): 49.53 CORD INFORMATION BABY A No. Cord Vessels: 3 Nuchal Cord : Around Neck x1, Loose Nuchal Cord- Other: body cord Cord Blood Taken: Yes-For Eval (Mom's Blood Type - or O+) Infant Suction: None ASSESSMENT BABY A Infant Complications: None Physical Findings at Delivery: Within Normal Limits Infant Respirations: Appears Normal Skin to Skin: Yes It Risk Advisor/ALS Called : No Care By: Billy Eric RN Transferred To: Remains with Mother BABY B INFORMATION : N/A SIGNATURES Signature: with User ID: [email or web address]
[2019-12-22] MEDS: PRENATAL VITAMIN W DHA CAPSULE PO SCH (12:07)
[2019-12-22] MEDS: SENNOSIDES/DOCUSATE 8.6-50 MG 1 EACH TABLET PO SCH (12:08)
[2019-12-22] MEDS: DOCUSATE SODIUM 100 MG CAPSULE PO SCH ×2 (12:08→18:32)
[2019-12-22] MEDS: FAMOTIDINE 20 MG TABLET PO SCH ×2 (12:08→21:26)
[2019-12-22] MEDS: FERROUS SULFATE 325 MG TABLET PO SCH ×2 (12:08→18:32)
[2019-12-22] MEDS: IBUPROFEN 800 MG TABLET PO SCH ×2 (13:23→21:26)
[2019-12-23] MEDS: IBUPROFEN 800 MG TABLET PO SCH ×3 (05:21→21:33)
[2019-12-23 07:12] LABS: HEMATOCRIT 32.6 % (36.0-47.0); HEMOGLOBIN 11.1 g/dL (12.0-15.5); MEAN CORPUSCULAR HEMOGLOBIN 28.2 pg (27.0-33.4); MEAN CORPUSCULAR HGB CONC 34.1 g/dL (32.0-36.0); MEAN CORPUSCULAR VOLUME 83 fl (80-97); PLATELET COUNT 194 10^3/uL (150-450); RED BLOOD COUNT 3.93 10^6/uL (3.72-5.28); RED CELL DISTRIBUTION WIDTH 15.5 % (11.5-14.0); WHITE BLOOD COUNT 10.9 10^3/uL (4.0-10.5)
[2019-12-23] MEDS: FERROUS SULFATE 325 MG TABLET PO SCH ×2 (09:35→17:08)
[2019-12-23] MEDS: PRENATAL VITAMIN W DHA CAPSULE PO SCH (09:35)
[2019-12-23] MEDS: FAMOTIDINE 20 MG TABLET PO SCH ×2 (09:35→21:33)
[2019-12-23] MEDS: SENNOSIDES/DOCUSATE 8.6-50 MG 1 EACH TABLET PO SCH (09:35)
[2019-12-23] MEDS: DOCUSATE SODIUM 100 MG CAPSULE PO SCH ×2 (09:35→17:08)
--- NOTE | 2019-12-23 10:14 | PDOC PROGRESS REPORT ---
Subjective-OB Progress Note for:: 12/23/19 - PP Day #1, UOB, voiding , no complaints, O+, breast and bottlefeeding. Physical Exam (OB) Vital Signs: Temp Pulse Resp BP Pulse Ox 98.0 F 81 16 112/52 L 98 12/23/19 08:05 12/23/19 07:20 12/23/19 07:20 12/23/19 07:20 12/23/19 07:20 Intake & Output 12/22/19 12/23/19 12/24/19 06:59 06:59 06:59 Intake Total 1450 340 Output Total 450 Balance 1000 340 Weight 154.2 kg - General General Appearance: Appears well, Alert In distress: None - PIH/Pre-Eclampsia Clonus: Negative Headache: Absent Epigastric Pain: No Visual Changes: No - Maternal Morbidity 59. Maternal Morbidity (serious complications experinced by the mother associated with labor and delivery: None of the above - Lochia Lochia Amount: Scant < 10 ml Lochia Color: Rubra/Red - Abdomen Description: Soft Hernia Present: No Fundal Description: Firm, Boggy Fundal Height: u/u - u/2 - Respiratory Respiratory Status: No respiratory distress - Abdominal Distension: No distension Tenderness: Nontender - Genitourinary Genitourinary Note: voiding - Extremities Upper extremity: Normal inspection Lower extremities: Normal inspection - Neurological Cognition: Normal Orientation: AAOx4 - Psychological Associated symptoms: Normal affect, Normal mood - Skin Skin Temperature: Warm Skin Moisture: Dry Objective-Diagnostic Laboratory: 12/23/19 06:24 12/23/19 06:24 WBC 10.9 H RBC 3.93 Hgb 11.1 L Hct 32.6 L MCV 83 MCH 28.2 MCHC 34.1 RDW 15.5 H Plt Count 194 Assessment and Plan(PN) - Assessment and Plan (1) Normal course Is this a current diagnosis for this admission?: Yes (2) Normal vaginal delivery Is this a current diagnosis for this admission?: Yes (3) Obesity Qualifiers: Obesity type: due to excess calories Body mass index: unspecified BMI Is this a current diagnosis for this admission?: Yes Plan:: Ambulation encouraged, Routine PP orders - Time Spent with Patient Time with patient: Less than 15 minutes Medications reviewed and adjusted accordingly: Yes - Disposition Anticipated Discharge Disposition: Home, Self Care Anticipated Discharge Timeframe: within 24 hours
[2019-12-24] MEDS: IBUPROFEN 800 MG TABLET PO SCH (06:01)
[2019-12-24] MEDS: DOCUSATE SODIUM 100 MG CAPSULE PO SCH (09:14)
[2019-12-24] MEDS: SENNOSIDES/DOCUSATE 8.6-50 MG 1 EACH TABLET PO SCH (09:14)
[2019-12-24] MEDS: FAMOTIDINE 20 MG TABLET PO SCH (09:14)
[2019-12-24] MEDS: FERROUS SULFATE 325 MG TABLET PO SCH (09:14)
[2019-12-24] MEDS: PRENATAL VITAMIN W DHA CAPSULE PO SCH (09:14)
--- NOTE | 2019-12-24 10:58 | PDOC DISCHARGE SUMMARY ---
Impression - Admit/DC Date/PCP Admission Date/Primary Care Provider: 12/22/19 04:38 Discharge Date: 12/24/19 - Discharge Diagnosis (1) Normal course Is this a current diagnosis for this admission?: Yes (2) Normal vaginal delivery Is this a current diagnosis for this admission?: Yes (3) Obesity Is this a current diagnosis for this admission?: Yes - Additional Information Resuscitation Status: Full Code Discharge Diet: Regular Discharge Activity: Balance Activity w/Rest, Pelvic Rest Prescriptions: Ibuprofen [Motrin 800 mg Tablet] 800 mg PO Q8HP PRN #60 tablet PRN Reason: Home Medications: Vit,Calc76/Iron/Folic [Prenatabs Rx Tablet] 1 tab PO DAILY 12/18/19 Ibuprofen [Motrin 800 mg Tablet] 800 mg PO Q8HP PRN #60 tablet 12/24/19 HPI Gestational Age: 39.5 Reason(s) for Admission: PROM Procedures: NST Intrapartum Procedure(s): Spontaneous Vaginal Delivery Hospital Course 59. Maternal Morbidity (serious complications experinced by the mother associated with labor and delivery: None of the above Results Laboratory Results: WBC 10.9 10^3/uL (4.0-10.5) H 12/23/19 06:24 RBC 3.93 10^6/uL (3.72-5.28) 12/23/19 06:24 Hgb 11.1 g/dL (12.0-15.5) L 12/23/19 06:24 Hct 32.6 % (36.0-47.0) L 12/23/19 06:24 MCV 83 fl (80-97) 12/23/19 06:24 MCH 28.2 pg (27.0-33.4) 12/23/19 06:24 MCHC 34.1 g/dL (32.0-36.0) 12/23/19 06:24 RDW 15.5 % (11.5-14.0) H 12/23/19 06:24 Plt Count 194 10^3/uL (150-450) 12/23/19 06:24 Lymph % (Auto) 24.2 % (13-45) 12/22/19 04:59 [place] % (Auto) 6.0 % (3-13) 12/22/19 04:59 Eos % (Auto) 1.9 % (0-6) 12/22/19 04:59 Baso % (Auto) 0.5 % (0-2) 12/22/19 04:59 Absolute Neuts (auto) 8.2 10^3/uL (1.7-8.2) 12/22/19 04:59 Absolute Lymphs (auto) 3.0 10^3/uL (0.5-4.7) 12/22/19 04:59 Absolute Monos (auto) 0.7 10^3/uL (0.1-1.4) 12/22/19 04:59 Absolute Eos (auto) 0.2 10^3/uL (0.0-0.6) 12/22/19 04:59 Absolute Basos (auto) 0.1 10^3/uL (0.0-0.2) 12/22/19 04:59 Seg Neutrophils % 67.4 % (42-78) 12/22/19 04:59 Urine Color STRAW 12/22/19 04:00 Urine Appearance CLEAR 12/22/19 04:00 Urine pH 6.0 (5.0-9.0) 12/22/19 04:00 Ur Specific [place] 1.005 12/22/19 04:00 Urine Protein NEGATIVE mg/dL (NEGATIVE) 12/22/19 04:00 Urine Glucose (UA) NEGATIVE mg/dL (NEGATIVE) 12/22/19 04:00 Urine Ketones NEGATIVE mg/dL (NEGATIVE) 12/22/19 04:00 Urine Blood MODERATE (NEGATIVE) H 12/22/19 04:00 Urine Nitrite NEGATIVE (NEGATIVE) 12/22/19 04:00 Urine Bilirubin NEGATIVE (NEGATIVE) 12/22/19 04:00 Urine Urobilinogen NEGATIVE mg/dL (<2.0) 12/22/19 04:00 Ur Leukocyte Esterase NEGATIVE (NEGATIVE) 12/22/19 04:00 Urine Ascorbic Acid NEGATIVE (NEGATIVE) 12/22/19 04:00 Membranes Rupture POSITIVE (NEGATIVE) H 12/22/19 04:02 Urine Opiates Screen NEGATIVE 12/22/19 04:00 Urine Methadone Screen NEGATIVE 12/22/19 04:00 Ur Barbiturates Screen NEGATIVE 12/22/19 04:00 Ur Phencyclidine Scrn NEGATIVE 12/22/19 04:00 Ur Amphetamines Screen NEGATIVE 12/22/19 04:00 U Benzodiazepines Scrn NEGATIVE 12/22/19 04:00 Urine Cocaine Screen NEGATIVE 12/22/19 04:00 U Marijuana (THC) Screen NEGATIVE 12/22/19 04:00 RPR NONREACTIVE (NONREACTIVE) 12/22/19 04:59 Blood Type O POSITIVE 12/22/19 04:59 Antibody Screen NEGATIVE 12/22/19 04:59 Plan Plan of Treatment: f/u at [facility] in 4 wks Time Spent: Less than 30 Minutes
[2019-12-24 12:20] VITALS: BP 120/71
== END 2019-12-24 12:38 | disposition home or self-care (01) | DRG 807 ==
LOC: LC 03:46 → LR 04:38 → 2S 09:54
PROVIDERS: ADMIT Obstetrics & Gynecology; ATTEND Obstetrics & Gynecology
PROC: 10E0XZZ Delivery of Products of Conception, External Approach (ICD-10-PCS; principal; 2019-12-22)
DX: O99.214 Obesity complicating childbirth (principal); Z37.0 Single live birth; E66.01 Morbid (severe) obesity due to excess calories; O69.81X0 Labor and delivery complicated by cord around neck, without compression, not applicable or unspecified; Z3A.39 39 weeks gestation of pregnancy
CPT/HCPCS: 36415; 80307; 81005; 84112; 85025; 85027; 86592; 86850; 86900; 86901; J2590; J3490